=== PATIENT | female | born 1980 | race Two or more races ===

== ENCOUNTER → 2018-11-17 | Day surgery (SDC) | payer OTHER ==
[~2018-11-17] MED LIST: IMURAN50 MG PO; PLAQUENIL PO; PREDISONE PO
== END | disposition home or self-care (01) ==
LOC: ADM 11-14 15:00 → AMB-ENDOS 12:57
DX: K64.1 Second degree hemorrhoids (principal)

== ENCOUNTER 2019-10-10 07:34 | Day surgery (SDC) | payer OTHER ==
[~2019-10-10 07:34] MED LIST changes: +FOSAMAX70 MG PO; +PROTONIX40 MG PO
== END 2019-10-10 15:05 | disposition home or self-care (01) ==
LOC: CIR.AMB 07:34
DX: D12.9 Benign neoplasm of anus and anal canal (principal); A63.0 Anogenital (venereal) warts